=== PATIENT | male | born 1970 | race Caucasian/White ===

== ENCOUNTER 2017-03-18 18:17 | Emergency (ER) | payer BC ==
[2017-03-18] MEDS ORDERED: IBUPROFEN 600 MG TABLET PO ONE (18:49)
[2017-03-18] MEDS ORDERED: ONDANSETRON ODT 4 MG TAB.RAPDIS ONE (19:57)
[2017-03-18] MEDS ORDERED: HYDROmorphone HCL 2 MG TABLET PO ONE (19:57)
[2017-03-18] MEDS ORDERED: ONDANSETRON ODT PREPAC 4 MG TAB.RAPDIS PO ONE (20:19)
[2017-03-18] MEDS ORDERED: HYDROcodone/APAP PREPAC 5/325 1 TAB TABLET PO ONE (20:20)
--- NOTE | 2017-03-18 20:22 | ER PHYSICIAN DOCUMENTATION ---
Physician Documentation [facility] Name:Damián Dickerson Age:46 yrs Sex:Male :1970 Arrival Date:03/18/2017 Time:18:17 BedTrauma-A Private MD: Ger Edwards Disposition: 03/19 03:52 Chart complete. tl1 Disposition: 03/18/17 19:59 Discharged to Home/Self Care. Impression: Rib Fracture, Closed Head Injury w/o Cranial Wound, Unspec State LOC. - Condition is Good. - Discharge Instructions: RIB FRACTURE - FRACTURE, Rib, Acute Brain Injuries - HEAD INJURY, No Wake-Up (Adult). - Prescriptions for [place] 7.5- 325 mg Oral Tablet - take 1 tablet by ORAL route every 6 hours As needed; 20 tablet. Zofran 4 mg Oral Tablet - take 1-2 tablet by ORAL route every 4-6 hours As needed; 10 tablet. - Medical Reconciliation form form. - Follow up: Private Physician; When: 4- 6 days; Reason: Recheck today's complaints, Continuance of care. - Problem is new. - Symptoms have improved. - Notes: RETURN TOMORROW MORNING FOR A REPEAT CHEST X-RAY. RETURN SOONER IF WORSE HPI: 03/18 18:59 This 46 yrs old Male presents to ER via Private Vehicle with complaints of sc Fall Injury - BACK PAIN. 18:59 Details of fall: The patient fell from a height, horse bolted so he jumped off landing sc on left side back. Onset: The symptom(s)/episode began/occurred at 16:45. Associated injuries: The patient sustained injury to the chest, abrasion, contusion, pain with breathing, pain with movement. Associated signs and symptoms: Pertinent positives: memory problems, Loss of consciousness: the patient experienced no loss of consciousness. Severity of symptoms: At their worst the symptoms were mild, in the emergency department the symptoms memory returned since then, just had problems with activities earlier in day. Historical: - Allergies: No known drug Allergies; - Home Meds: 1. None - PMHx: None; - PSHx: bilateral hands as child for martin; - Tetanus: < 10 years < 10 years. - Ebola Screening: : No symptoms or risks identified at this time. . - Immunization history: NA. - Social history: Smoking status: unknown if patient ever smoked tobacco. ROS: 19:02 Constitutional: Negative for fever, chills, and weight loss. sc Eyes: Negative for injury, pain, redness, and discharge. ENT: Negative for injury, pain, and discharge. Neck: Negative for injury, pain, and swelling. Cardiovascular: Negative for chest pain, palpitations, and edema. Abdomen/GI: Negative for abdominal pain, nausea, vomiting, diarrhea, and constipation. Back: Negative for injury and pain. Skin: Negative for injury, rash, and discoloration. 19:02 Neuro: Negative for headache, weakness, numbness, tingling, and seizure. sc 19:02 Respiratory: Positive for some pain with inspiration. 19:02 MS/extremity: Negative for injury or acute deformity. 19:02 Neuro: Positive for altered mental status. Exam: Constitutional: This is a well developed, well nourished patient who is awake, alert, and in no acute distress. Head/Face: Normocephalic, atraumatic. Eyes: Pupils equal round and reactive to light, extra-ocular motions intact. Lids and lashes normal. Conjunctiva and sclera are non-icteric and not injected. Cornea within normal limits. Periorbital areas with no swelling, redness, or edema. 19:07 Neck: Trachea midline, no thyromegaly or masses palpated, and no cervical sc lymphadenopathy. Supple, full range of motion without nuchal rigidity, or vertebral point tenderness. No meningismus. 19:07 Chest/axilla: Inspection: abrasion, that is moderate, of the left lateral posterior chest Palpation: tenderness, that is mild, that totally reproduces the patient's complaints. 19:07 Respiratory: the patient does not display signs of respiratory distress, Respirations: normal, Breath sounds: are normal, clear throughout. 19:07 Musculoskeletal/extremity: Exam is negative for acute changes. 19:07 Skin: Appearance: injury, abrasion(s), moderate sized abrasion noted. 19:07 Neuro: Orientation: is normal, Mentation: is normal, Memory: is normal, Cranial nerves: CN II- XII are normal as tested, Cerebellar function: is grossly normal, no acute changes, Gait: is steady. Vital Signs: 18:27 BP 134 / 77; Pulse 72; Resp 16; Temp 98.7; Pulse Ox 96% on R/A; co1 18:32 Weight 90.72 kg; Height 6 ft. 2 in. (187.96 cm); sc1 19:30 BP 128 / 71; Pulse 78; Resp 14; Pulse Ox 95% on R/A; nf 20:15 BP 121 / 74; Pulse 71; Resp 12; Pulse Ox 95% on R/A; Pain 3/10; nf 18:32 Body Mass Index 25.68 (90.72 kg, 187.96 cm) co1 [place] Coma Score: 20:21 Eye Response: spontaneous(4). Verbal Response: oriented(5). Motor Response: obeys nf commands(6). Total: 15. Trauma Score (Adult): 18:27 Eye Response: spontaneous(1); Verbal Response: oriented(1); Motor Response: obeys sc1 commands(2); Systolic BP: > 89 mm Hg(4); Respiratory Rate: 10 to 29 per min(4); [place] Score: 15; Trauma Score: 12 MDM: 18:21 Patient medically screened. co 19:08 Differential diagnosis: abrasion, contusion, fracture, multiple trauma. Data reviewed: co vital signs, nurses notes, lab test result(s), radiologic studies, plain films. Data reviewed: and as a result, I will continue to observe the patient. Counseling: I had a detailed discussion with the patient and/or guardian regarding: the historical points, exam findings, and any diagnostic results supporting the discharge/admit diagnosis, lab results, radiology results. 03/19 03:36 ED course: He was hemodynamically stable and symptomatically improved, especially after tl1 receiving toradol. I discussed his care with Dr Raymundo Gómez. After that discussion, I decided to ask Mr Dickerson to return tomorrow for a repeat CXR to make sure he does not have a pneumothorax prior to [place].. 03/18 22:43 Order name: CAT SCAN; HEAD W/O CON [id number] EDHI 03/20 07:34 Order name: CXR 2V [id number] EDHI 03/18 18:33 Order name: Urine Dip; Complete Time: 20:10 co Dispensed Medications: 03/18 18:41 Drug: Ibuprofen 600 mg; Route: PO; nf 19:56 Follow up: Response: Pain is decreased nf 19:57 Drug: Zofran 4 mg; Route: PO; nf 20:10 Follow up: Response: No adverse reaction nf 19:57 Drug: Dilaudid 2 mg; Route: PO; nf 20:10 Follow up: Response: No adverse reaction nf 20:09 Drug: Zofran 1 tablet; Route: PO; nf 20:09 Follow up: Response: Pharmacy closed - take home med pack nf 20:09 Drug: HYDROcodone-acetaminophen (5mg/325 mg) 1-2 tabs 1 tabs; Route: PO; nf 20:09 Follow up: Response: Pharmacy closed - take home med pack nf Point of Care Testing: Urine Dip: 19:20 pH: 5.5; ; Specific [place]: 1.020; Ketones: Trace; Glucose: Negative; Protein: Trace; nf Leukocytes: Negative; Nitrite: Negative ; Blood: Non Hemolyzed Trace; Bilirubin: Negative ; Urobilinogen: Normal Signatures: Ronit Echols RN RN Ger Arenas MD MD co Tristan Alfred MD MD tl1
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
--- NOTE | 2017-03-18 22:41 | CT REPORT ---
HISTORY: fall, hit head posteriorly. COMPARISON: None. TECHNIQUE: Axial non-contrast images obtained from skull vertex through foramen magnum. Dose reduction technique was utilized. FINDINGS: There is no atrophy. There is no hemorrhage. There is no hydrocephalus. No mass lesion is identifi ed. Sykes white differentiation adequate, there is no infarction. No midline shift is identified. T he paranasal sinuses are clear. IMPRESSION: No CT evidence of acute intracranial abnormalities. Final Electronic Signature: This report was electronically signed by Ministerio Alexander MD on 03/18/2017 10:39 PM. raina /
--- NOTE | 2017-03-20 07:33 | RADIOLOGY REPORT ---
HISTORY: Trauma. Pain. COMPARISON: None available. FINDINGS: 2 views of the chest obtained. Normal heart size and central pulmonary vessels. Normal mediastinal c ontour. Mild infiltrate atelectasis or contusion right lower lobe. No pleural effusion. Possible small loculated anterior pneumothorax best seen on the lateral view. Mildly displaced fracture left posterior sixth rib. IMPRESSION: Left posterior sixth rib fracture with possible small loculated anterior pneumothorax. Infiltrate atelectasis or contusion right lower lobe. Final Electronic Signature: This report was electronically signed by Larry Meehan MD, FACR on 03/20/2017 7:31 AM. keith /
== END 2017-03-18 20:22 | disposition home or self-care (01) ==
LOC: ER 18:17
DX: S22.32XA Fracture of one rib, left side, initial encounter for closed fracture (principal); S06.890A Other specified intracranial injury without loss of consciousness, initial encounter; S20.312A Abrasion of left front wall of thorax, initial encounter; S50.312A Abrasion of left elbow, initial encounter; V80.010A Animal-rider injured by fall from or being thrown from horse in noncollision accident, initial encounter; Y92.838 Other recreation area as the place of occurrence of the external cause; Y93.52 Activity, horseback riding
CPT/HCPCS: 70450; 71020; 99284

== ENCOUNTER 2017-03-19 10:00 | Emergency (ER) | payer BC ==
--- NOTE | 2017-03-19 11:49 | ER NURSING DOCUMENTATION ---
Nurse's Notes [facility] Name:Damián Dickerson Age:46 yrs Sex:Male :1970 Arrival Date:03/19/2017 Time:10:00 Bed6 Private MD:No PCP, Identified Diagnosis:Traumatic Pneumothorax Presentation: 03/19 10:03 Acuity: NORMA 4 tg 10:12 Presenting complaint: Patient states: Sore on left side, no distress. HERE FOR RECHECK tg XRAY REQUESTED BY DR ALFRED. Transition of care: patient was not received from another setting of care. 10:12 Method Of Arrival: Private Vehicle tg 10:18 Presenting complaint:. tg Triage Assessment: 10:16 General: Appears in no apparent distress, Behavior is cooperative, quiet. Pain: tg Complains of pain in left lateral anterior chest and left lateral posterior chest Aggravated by COUGH. Neuro: Level of Consciousness is awake, alert. Respiratory: Airway is patent Respiratory effort is even, unlabored. Derm: Skin is pink, warm & dry. Historical: - Allergies: No known drug Allergies; - Home Meds: 1. None - PMHx: NONE; Rib Fracture (March 18, 2017); Closed Head Injury w/o Cranial Wound, Unspec State LOC (March 18, 2017); - PSHx: bilateral hands as child for martin; - Tetanus: unknown. - Ebola Screening: : Patient negative for fever greater than or equal to 101.5 degrees Fahrenheit, and additional compatible Ebola Virus Disease symptoms. Patient denies exposure to infectious person. Patient denies travel to an Ebola-affected area in the 21 days before illness onset. No symptoms or risks identified at this time. . - Immunization history: Unable to Obtain. - Social history: Smoking status: unknown if patient ever smoked tobacco. Screenin:17 Infectious Disease Risk Unable to Obtain. Abuse screen: Denies threats or abuse. Denies tg injuries from another. Nutritional screening: No deficits noted. Vital Signs: 10:13 BP 107 / 64; Pulse 72; Resp 20; Pulse Ox 93% ; Weight 92.99 kg; Height 6 ft. 1 in. tg (185.42 cm) (R); Pain 2/10; 10:13 Body Mass Index 27.05 (92.99 kg, 185.42 cm) tg ED Course: 10:02 Patient arrived in ED. em3 10:03 Triage completed. tg 10:09 Tristan Alfred MD is Attending Physician. tl1 10:09 Harish Garcia RN is Primary Nurse. tg 10:17 Arm band placed on. tg 10:18 Valuables Remains with patient. tg 10:43 DR. GÓMEZ. tg 11:03 No PCP, Identified is Private Physician. em3 Administered Medications: No medications were administered Outcome: 11:29 Discharge ordered by . tl1 11:46 Discharged to home ambulatory, with family, with significant other. tg 11:46 Condition: unchanged 11:46 Discharge Assessment: Patient awake, alert and oriented x 3. No cognitive and/or functional deficits noted. Patient verbalized understanding of disposition instructions. Patient awake and alert. 11:46 Discharge instructions given to patient, significant other, Dr. Gómez instructed pt's significant other on the use a large catheter needle for emergency needle decompression. Pt and significant other verbalized understanding, and were shown how the needle cath works, where to insert it, and under what circumstances. Instructed on discharge instructions, follow up and referral plans. 11:49 Patient left the ED. tg Signatures: Harish Garcia, YANA RN Kristal Kim ms KusumTom jade em3 Tristan Alfred MD MD tl1
--- NOTE | 2017-03-19 11:49 | ER PHYSICIAN DOCUMENTATION ---
Physician Documentation [facility] Name:Damián Dickerson Age:46 yrs Sex:Male :1970 Arrival Date:03/19/2017 Time:10:00 Bed6 Private MD:No PCP, Identified ED Tristan Bruce Disposition: 03/20 03:45 Chart complete. tl1 Disposition: 03/19/17 11:29 Discharged to Home/Self Care. Impression: Traumatic Pneumothorax. - Condition is Good. - Discharge Instructions: Pneumothorax - PNEUMOTHORAX, Blunt Trauma. - Medical Reconciliation form form. - Follow up: Private Physician; When: 2 - 3 days; Reason: Recheck today's complaints, Continuance of care. - Problem is new. - Symptoms are unchanged. - Notes: GO TO THE NEAREST EMERGENCY DEPARTMENT FOR ANY TROUBLE BREATHING, DIZZINESS OR IF WORSE IN ANY WAY. MAKE SURE TO GET A FOLLOW UP AND CHEST X-RAY WITH YOUR PRIMARY PHYSICIAN WITHIN A FEW DAYS AFTER YOU GET HOME DO NOT FLY IN AN AIRPLANE FOR 5 DAYS OR UNTIL CLEARED TO DO SO BY YOUR PHYSICIAN. HPI: 03/19 10:00 This 46 yrs old Male presents to ER via Private Vehicle with complaints of tl1 Recheck - Rib Injury. 10:00 The patient or guardian reports chest pain that is located primarily in the left tl1 lateral posterior chest. Onset: The symptom(s)/episode began/occurred suddenly, yesterday. He was seen here yesterday after a fall off a horse and had a left posterior 6th rib fraccture. I asked him to return today for a repeat CXR prior to flying home tonight, to make sure he did not develop a pneumothorax. He had an uneventful night last night. He has some persistent left chest pain, but denies f/c/s or SOB.. Historical: - Allergies: No known drug Allergies; - Home Meds: 1. None - PMHx: NONE; Rib Fracture (March 18, 2017); Closed Head Injury w/o Cranial Wound, Unspec State LOC (March 18, 2017); - PSHx: bilateral hands as child for martin; - Tetanus: unknown. - Ebola Screening: : Patient negative for fever greater than or equal to 101.5 degrees Fahrenheit, and additional compatible Ebola Virus Disease symptoms. Patient denies exposure to infectious person. Patient denies travel to an Ebola-affected area in the 21 days before illness onset. No symptoms or risks identified at this time. . - Immunization history: Unable to Obtain. - Social history: Smoking status: unknown if patient ever smoked tobacco. ROS: 10:00 Cardiovascular: Negative for edema, palpitations. tl1 10:00 Respiratory: Negative for cough, hemoptysis, shortness of breath, wheezing. 10:00 All other systems are negative. Exam: 10:00 Constitutional: This is a well developed, well nourished patient who is awake, alert, tl1 and in no acute distress. 10:00 Head/Face: Normocephalic, atraumatic. tl1 10:00 Cardiovascular: Rate: normal, Rhythm: regular, Heart sounds: normal, JVD: is not appreciated. 10:00 Respiratory: the patient does not display signs of respiratory distress, tl1 Respirations: normal, Breath sounds: are normal, no decreased breath sounds, no rales, rhonchi, no stridor, no wheezing. 10:00 Musculoskeletal/extremity: Extremities: all appear grossly normal, with no appreciated pain with palpation. Vital Signs: 10:13 BP 107 / 64; Pulse 72; Resp 20; Pulse Ox 93% ; Weight 92.99 kg; Height 6 ft. 1 in. tg (185.42 cm) (R); Pain 2/10; 10:13 Body Mass Index 27.05 (92.99 kg, 185.42 cm) tg MDM: 10:09 Patient medically screened. tl1 10:30 Data reviewed: vital signs, nurses notes, old medical records, and as a result, I will tl1 discharge patient. Counseling: I had a detailed discussion with the patient and/or guardian regarding: the historical points, exam findings, and any diagnostic results supporting the discharge/admit diagnosis, radiology results, the need for outpatient follow up, for a recheck, of his pneumothorax with the patient's primary care provider, to return to the emergency department if symptoms worsen or persist or if there are any questions or concerns that arise at home. Physician consultation: Raymundo Gómez was called at 10:30, was contacted at 10:30, regarding patient's condition, need to come to ED to see patient, and will see patient in ED, immediately, in the emergency department to see patient at 10:35. Special discussion: He understands that he should not fly with a pneumothorax, and that this could continue to get worse. He feels like he needs to get back to [place] and is probably going to start driving with his family. He understands the need to go to the nearest emergency department for any worsening of his symptoms.. ED course: Stable and asymptomatic from a respiratory standpoint. His CXR showed a small ( ?? 5% ) PTX. 03/20 07:38 Order name: CXR [id number] EDMS Dispensed Medications: No medications were administered Signatures: Harish Garcia RN RN Tristan Patricio MD MD tl1
--- NOTE | 2017-03-19 20:00 | CONSULTATION ---
DATE OF CONSULTATION: 03/19/17 HISTORY OF PRESENT ILLNESS: The patient is a very pleasant 46-year-old gentleman that came up with his family to [place]. They went on a trail ride yesterday riding horses. His horse was spooked and took off and he dismounted emergently. He fell and suffered a left chest contusion. He went back to the hotel for a couple hours but noticed that the left chest was quite sore and painful even with a deep breath and he came to the emergency room. A plain film was done. He did have a 6th rib fracture on the left side. He had no abdominal complaints. He was hemodynamically completely stable. Chest films were done and there was a rib fracture but no evidence of subcutaneous emphysema and no evidence of pneumothorax. After phone consultation with myself last night it was decided that he would return this morning for a repeat chest film prior to flying out this afternoon to return to [place]. He returns today. He is actually feeling quite well. His pulse rate is normal. He is not having any shortness of breath or difficulty breathing but does have left chest pain with a deep inspiration. He does not seem to have a big pleuritic component. However, on chest film he does have approximately 5% pneumothorax, a small apical pneumothorax only that does not extend all the way down the lateral chest. Lung is otherwise relatively expanded. There is certainly no evidence of tension physiology. His heart rate is normal in the 60s, blood pressure normal. Abdomen soft with no other complaints. He has no other injuries that he has discovered overnight. PAST MEDICAL HISTORY: Unremarkable. MEDICATIONS: He takes no medications on a daily basis. ALLERGIES: He takes no known drug allergies. PAST SURGICAL HISTORY: No chest or abdominal surgery in the past. PHYSICAL EXAMINATION GENERAL: Well-developed, well-nourished gentleman in no acute distress. LUNGS: Pulses are brisk, symmetric and he has breath sounds bilaterally. He does not have splinting. He does not have any flaring or shortness of breath visible. No respiratory issues. He does not have JVD. ABDOMEN: Soft and nontender. CHEST: He has some tenderness over the left lateral chest but not significant and no crepitus. ANALYSIS: The patient with a small pneumothorax which has developed over the course of 24 hours. It is likely that this has already sealed. If he lived locally I would continue to follow this and only if it increased would I place a chest tube with a Heimlich valve. I have offered to have him stay locally. He has friends in [facility] which is very close to [place], my primary place of practice, and I would follow him up in my clinic on Monday morning with another chest film. If it is unremarkable then he would be cleared to travel but not by airplane. I have discussed the issues of altitude with him and his . I have also discussed with him the option of returning home. They would like to potentially drive home. The safest option would be to place a Heimlich valve prior to him traveling. This of course would not reexpand the lung but would prevent tension physiology. However, his pneumothorax is small, it has been 24 hours with minimal progression and it seems reasonable to assume that he would not develop a tension physiology quickly although this is a potential and a possibility and I have discussed this with them and the risks of this. The patient understands all of the above. Both he and his are leaning towards driving back to [place]. I have explained that he should spend the night in a larger city, one that has a hospital beyond just a clinic and we have talked about their potential route. I have explained the route back to [place] that would give them the least elevation change other than decreasing elevation over time. I have explained to her the signs and symptoms of increasing problem which should prompt a stop at the closest hospital or ER if he were to become unresponsive. He will be sent with an angiocath catheter so that she could place this in the chest. I have explained how this is done and where it should be done and demonstrated this to her on her short of actually performing the procedure. They both seem quite comfortable with the idea of traveling home. If he gets home he should immediately followup with his primary care provider for a repeat chest film if the pneumothorax has expanded a chest tube would be indicated. Otherwise this could be simply followed and it should resolve over the course of some days. He should not fly in the next 2-4 weeks if he does not have the catheter place and the lung reexpanded. He and his understand this and if they stayed a week, if I put a chest tube today that we could have him flying again, however, he has no need to fly in the near future beyond getting back to home. All of this has been explained in some detail and I have given them their options. They choose to travel without the chest tube at this time. I feel this is a reasonable option although there is some risk as I have explained to them and I have prepared them as best I can to get home safely. MTDD
--- NOTE | 2017-03-20 07:37 | RADIOLOGY REPORT ---
HISTORY: Follow-up rib fracture. COMPARISON: 03/18/2017. FINDINGS: 2 views of the chest obtained. Again noted is a mildly displaced fracture of the left posterior sixt h rib. There is a small left pneumothorax. This is increased in size since the previous study. No focal infiltrates. No right pleural effusion. Possible small left pleural effusion. Normal heart size and central pulmonary vessels. Normal mediastinal contour. IMPRESSION: Interval increase in size of left pneumothorax. Results called to [facility]. Final Electronic Signature: This report was electronically signed by Larry Meehan MD, FACR on 03/20/2017 7:35 AM. keith /
== END 2017-03-19 11:49 | disposition home or self-care (01) ==
LOC: ER 10:00
DX: S27.0XXA Traumatic pneumothorax, initial encounter (principal); S22.32XD Fracture of one rib, left side, subsequent encounter for fracture with routine healing; V80.010D Animal-rider injured by fall from or being thrown from horse in noncollision accident, subsequent encounter
CPT/HCPCS: 71020; 99281